=== PATIENT | female | born 2000 | race Caucasian/White ===

== ENCOUNTER 2025-05-19 04:10 | Emergency (ER) | payer OTHER ==
[~2025-05-19] VITALS: Ht 167.6 cm; Wt 104.3 kg
[2025-05-19 04:46] VITALS: TEMP 98.9
[2025-05-19 05:38] LABS: PLATELET COUNT (AUTO) 235 K/uL (150-450); RED BLOOD CELL COUNT(AUTO) 4.14 MIL/uL (4.0-5.2); RED CELL DISTRIBUTION WIDTH 13.3 % (11.5-15.0); WHITE BLOOD COUNT (AUTO) 11.0 K/uL (4.3-11.0)
[2025-05-19 05:42] LABS: APPEARANCE,URINE CLEAR (CLEAR); BLOOD, URINE NEGATIVE Ery/uL (NEGATIVE); LEUKOCYTE ESTERASE ,URINE NEGATIVE (NEGATIVE); NITRITE, URINE NEGATIVE (NEGATIVE); PREGNANCY TEST URINE QUAL NEGATIVE (NEGATIVE); UGLUCOSE NEGATIVE (NEGATIVE)
[2025-05-19 05:58] LABS: ASPARTATE AMINOTRANSFERASE 17.0 U/L (15-37); CALCIUM, SERUM 9.0 mg/dL (8.5-10.1); CREATININE 1.0 mg/dL (0.6-1.3); NT-PRO BNP 61.0 pg/mL (0-125); SODIUM SERUM 139.0 mmol/L (136-145); TOTAL PROTEIN, SERUM 7.1 g/dL (6.4-8.2); UREA NITROGEN, BLOOD 18.0 mg/dL (7-18)
[2025-05-19 06:32] VITALS: BP 121/80; O2SAT 99
== END 2025-05-19 06:33 | disposition home or self-care (01) ==
LOC: ER 04:18
DX: R07.2 Precordial pain (principal); R11.10 Vomiting, unspecified; F17.290 Nicotine dependence, other tobacco product, uncomplicated
CPT/HCPCS: 36415; 71045-TC; 80053-TC; 83880; 84484-TC; 84703-TC; 85025-TC; 85378-TC